=== PATIENT | female | born 1960 | race Caucasian/White ===

== ENCOUNTER 2020-02-01 15:36 | Outpatient (CLI) | payer OTHER, SELFPAY ==
--- NOTE | ~2020-02-01 | MM_ITS ---
EXAMINATION: MM screening nicolás BI w ligia HISTORY: Screening mammogram TECHNIQUE: Craniocaudal and mediolateral oblique 3-D tomosynthesis images were obtained and synthetic 2-D images were generated. CAD analysis was submitted and interpreted. COMPARISON: 05/09/2018, 11/07/2014 bilateral digital screening mammogram examinations BREAST PARENCHYMAL COMPOSITION: The breasts are almost entirely fatty. FINDINGS: Stable benign circumscribed low-density opacity in the posterior aspect of the lower outer quadrant of the left breast, most consistent with small benign intramammary lymph node. There is no e vidence of suspicious mass, calcification, or architectural distortion to suggest malignancy in eithe r breast. There has been no suspicious interval change. IMPRESSION: 1. No mammographic evidence of malignancy. 2. Recommend routine screening mammography in one year. BI-RADS Category 2: Benign finding(s). Reviewed, dictated and finalized at location A.
== END 2020-02-01 15:37 | disposition home or self-care (01) ==
PROVIDERS: PCP Family Medicine; Visit Provider Physician Assistant
DX: Z12.31 Encounter for screening mammogram for malignant neoplasm of breast (principal)
CPT/HCPCS: 77063; 77067

== ENCOUNTER 2020-02-06 00:33 | Day surgery (SDC) | payer OTHER, SELFPAY ==
[2020-02-04 09:15] VITALS: BMI 55.1
--- NOTE | 2020-02-05 17:36 | WPDANESEPP ---
Anes - Eval Pre Procedure Procedure: Colonoscopy Operation Date: 02/06/20 08:30 Proposed Procedures p Colonoscopy - Gregory Guerrero MD Date/Time: 02/05/20 17:36 Surgeon: Yolanda Pre Op Diagnosis: Abnormal Stool Patient Data Age: 59 Gender: F Height: 5 ft 6 in Weight: 155 kg Allergies Allergy/AdvReac Type Severity Reaction Status Date / Time morphine Allergy Mild Nausea Verified 02/04/20 09:04 Home Medications Medication Instructions Recorded Confirmed Type atenolol 100 mg PO DAILY 02/04/20 02/04/20 History lisinopril-hydrochlorothiazide 1 tablet PO DAILY 02/04/20 02/04/20 History tramadol 25 mg PO HS 02/04/20 02/04/20 History Patient hx anesthesia problems: other (hard to wake up) Family hx anesthesia problems: none PMFSH Past Medical History Medical History Anxiety Arthritis Hypertension Morbid obesity Surgical History Surgical History Previous section Family History Family History Other Diabetes mellitus Family history of cardiovascular disease Hypertension Social History Social History Smoking status: Never smoker Alcohol intake: current Exam Day of Procedure 02/05/20 17:36
[2020-02-06 07:17] VITALS: BP 133/84; PULSE 78; RESP 16; TEMP 36.8; O2SAT 97; BMI 56.7
--- NOTE | 2020-02-06 07:41 | WPDANESEFPP ---
Anes - Eval Final PreProcedure Day of Procedure 02/06/20 07:41 Patient weight: super morbidly obese Heart: regular rate and rhythm Lungs: clear to auscultation Airway: Mallampati scale class II Neurological: alert and oriented Last oral intake: >/= 8 hours ASA classification: III Emergent: no Anesthetic plan: proceed Anesthesia type and monitoring: general GIVS and standard monitoring Informed Consent: The patient's anesthetic plan and its attendant risks and benefits were discussed with the patient/family/POA. Questions were solicited and answers provided to the satisfaction of the patient/family/POA.
[2020-02-06] MEDS: LACTATED RINGERS 1,000 ML 150 ML IV CONT (07:53)
--- NOTE | 2020-02-06 08:32 | WPDGICN ---
Assessment and Plan Assessment and plan (1) Morbid obesity: Code(s): E66.01 - Morbid (severe) obesity due to excess calories Status: Acute (2) Positive colorectal cancer screening using Cologuard test: Code(s): R19.5 - Other fecal abnormalities Status: Acute Assessment and Plan: Plan is to proceed with screening colonoscopy. (3) Hypertension: Code(s): I10 - Essential (primary) hypertension Status: Acute GI Consult Note Consult date/time: 02/06/20 08:32 HPI: Cathryn Saldana is a 59 year old female Seen in evaluation at the request Dr. Salazar. And Dasia GROVE. Patient presents for colonoscopy. She recently had colon guard test positive. She states that her weight appetite bowel movements are normal. She denies abdominal pain.she denies blood in his stools. Family history noncontributory. She denies any blood in her stools. Past medical history is significant for obesity, and hypertension. Review of Systems Review of Systems: All systems reviewed & are unremarkable except as noted in HPI and below PMFSH Past Medical History Medical History Anxiety Arthritis Hypertension Morbid obesity Surgical History Surgical History Previous section Family History Family History Other Diabetes mellitus Family history of cardiovascular disease Hypertension Social History Social History Smoking status: Never smoker Alcohol intake: current Meds Home Medications and Allergies Home Medications Medication Instructions Recorded Confirmed Type atenolol 100 mg PO DAILY 02/04/20 02/06/20 History lisinopril-hydrochlorothiazide 1 tablet PO DAILY 02/04/20 02/04/20 History tramadol 25 mg PO HS 02/04/20 02/04/20 History Allergies Allergy/AdvReac Type Severity Reaction Status Date / Time morphine Allergy Mild Nausea Verified 02/06/20 07:16 Vital Signs Vital Signs - 24 hr 02/06/20 07:17 Temperature 36.8 C Pulse Rate 78 Respiratory Rate 16 Blood Pressure 133/84 Pulse Oximetry 97 Exam Narrative: Exam Narrative: Physical exam reveals her to be alert. Vital signs stable. HEENT exam unremarkable. Lungs are clear to auscultation and percussion. Heart is without murmur or extra sounds. Abdomen is obese. Bowel sounds are present soft nontender with no hepatosplenomegaly. Digital external rectal exam is normal.
[2020-02-06 09:12] VITALS: BP 92/46; PULSE 78; RESP 22; O2SAT 98
[2020-02-06 09:21] VITALS: BP 90/45; PULSE 76; RESP 21; O2SAT 98
[2020-02-06 09:29] VITALS: BP 90/48; PULSE 77; RESP 18; O2SAT 99
== END 2020-02-06 09:39 | disposition home or self-care (01) ==
PROVIDERS: PCP Family Medicine; Visit Provider Internal Medicine Gastroenterology
PROC: 0DJD8ZZ Inspection of Lower Intestinal Tract, Via Natural or Artificial Opening Endoscopic (ICD-10-PCS; CPT 45378; principal; 2020-02-06 08:30)
DX: Z12.11 Encounter for screening for malignant neoplasm of colon (principal); R19.5 Other fecal abnormalities; K62.1 Rectal polyp; I10 Essential (primary) hypertension; M19.90 Unspecified osteoarthritis, unspecified site; F41.9 Anxiety disorder, unspecified; E66.01 Morbid (severe) obesity due to excess calories; Z68.43 Body mass index [BMI] 50.0-59.9, adult
CPT/HCPCS: 45385; 88305; J2704; J7120

== ENCOUNTER 2022-10-18 09:35 | Outpatient (CLI) | payer BC, SELFPAY ==
--- NOTE | 2022-10-18 09:30 | ECG_ITS ---
Measurements Intervals [place] Rate: 92 P: 53 MS: 154 QRS: -55 QRSD: 90 T: 48 QT: 341 QTc: 424 Interpretive Statements SINUS RHYTHM LOW QRS VOLTAGE IN PRECORDIAL LEADS LEFT ANTERIOR FASCICULAR BLOCK BORDERLINE T WAVE ABNORMALITY- ANTERIOR LEADS BASELINE ARTIFACT- I, II, III, AVR, AVL, AVF, V1-V6 ABNORMAL ECG NO PREVIOUS ECG AVAILABLE FOR COMPARISON Electronically Signed On 10-18-2022 10:01:17 AUDIO VISUAL MANAGER by Osvaldo Jewell D.O.
[2022-10-18 10:30] LABS: Anion Gap 7 mmol/L (8-16); Blood Urea Nitrogen 29 mg/dL (7-17); Calcium 8.7 mg/dL (8.4-10.2); Carbon Dioxide 29 mmol/L (22-30); Chloride 98 mmol/L (98-107); Estimated Glomerular Filt Rate > 60; Glucose 276 mg/dL (65-110); Potassium 3.9 mmol/L (3.4-5.0); Sodium 134 mmol/L (137-145)
== END 2022-10-18 09:36 | disposition home or self-care (01) ==
PROVIDERS: Anesthesiology; PCP Family Medicine; Visit Provider Surgery
DX: I10 Essential (primary) hypertension (principal); Z79.899 Other long term (current) drug therapy; Z01.818 Encounter for other preprocedural examination; I44.4 Left anterior fascicular block
CPT/HCPCS: 36415; 80048; 93005

== ENCOUNTER 2022-10-25 00:57 | Day surgery (SDC) | payer BC, SELFPAY ==
[2022-10-12 13:49] VITALS: BMI 54.5
--- NOTE | 2022-10-12 14:27 | PC.NURSE ---
Addendum entered by Urmila Mock RN 10/12/22 14:34: CORRECTION: TAKE YOUR ATENOLOL THE MORNING OF SURGERY NOT METOPROLOL!!! Original Note: Report to the Outpatient Waiting Room, entrance under the green pavilion located off [facility], at time 11:30AM_ on date _10/25/22__. Planned Procedure Time: _1:30PM . Time changes happen often and if your time is changed the preop area will call you the afternoon before. - You and your visitor will be asked to self-screen and do not enter if you have any COVID symptoms. - Only one visitor is requested with a max of two and NO children visitors are allowed at this time. - The patient visitor may be requested to leave or wait in car when not with patient due to distancing restrictions.NOT CURRENTLY REQUIRED - A mask is required within the hospital. Patients may have clear liquids (water, carbonated beverages, clear teas, apple juice) until 3 hours prior to surgery with a maximum of 20 ounces. - No food from midnight until time of surgery - Take the following medications with a SIP of water the morning of surgery: _METOPROLOL Medications to discontinue per physician N/A Date to take last dose N/A Please no make-up, nail new zealander, hairspray, perfume, deodorant, or body powder the day of surgery. No jewelry (including any body piercings) or valuables the day of surgery, leave them at home. Please take a shower or bath the night before, or the morning of, surgery with the GENERIC CHLORHEXIDINE GLUCONATE SOAP OR BRAND name HIBICLENS SOAP. Wear comfortable, loose fitting clothing. - Jewelry must be removed prior to entering the operating room. Rings and piercings that are not removed may be cut off. - The hospital will not accept responsibility for valuables. - Please leave all valuables, including medications, at home the day of surgery. If you are going home after surgery, a licensed hazmat cdl a driver must drive you home. - NO public transportation without another adult if you receive anesthesia. - We recommend that an adult stay with you for 24 hours following discharge. - We also recommend that you do not drive, make important decision, drink alcoholic beverages, or take any drugs that were not prescribed by your health care provider for at least 24 hours after your discharge time. Follow any additional instructions given to you from your surgeon. If you or anyone in your household have experienced Covid symptoms in the past week, please notify your surgeon or the nurse liaison at the phone number below for possible testing. Telephone instructions given to _TEDI__and asked if any additional questions and then verbalized understanding. Patient advised to call surgeon office or pre surgery nurse liaison [phone] if any additional questions.
--- NOTE | 2022-10-22 13:42 | WPDANESEPPF ---
Anes - Initial Pre Proc Eval Procedure: Operation Date: 10/25/22 13:30 Proposed Procedures p Excision Left Axilla Hidradenitis - Carl Paulino DO Date/Time: 10/22/22 13:42 Surgeon: Carl Paulino DO Pre Op Diagnosis: hidradenitis suppurativa Patient Data Age: 62 Gender: F Height: 1.7 m Weight: 158 kg Allergies Allergy/AdvReac Type Severity Reaction Status Date / Time morphine Allergy Mild Nausea Verified 10/12/22 14:37 Home Medications Medication Instructions Recorded Confirmed Type atenolol 100 mg tablet 100 mg PO DAILY 02/04/20 10/12/22 History hydrochlorothiazide 12.5 mg capsule 12.5 mg PO DAILY 08/23/22 10/12/22 History lisinopril 5 mg tablet 5 mg PO DAILY 08/23/22 10/12/22 History mupirocin 2 % topical ointment 1 applic topical BID 08/23/22 10/12/22 History tramadol 50 mg tablet 50 mg PO DAILY PRN Pain 08/23/22 10/12/22 History metformin 500 mg tablet,extended 500 mg PO DAILY 10/12/22 10/12/22 History release 24 hr Patient hx anesthesia problems: none Family hx anesthesia problems: none Results Review: All pre-operative results and documents have been reviewed as part of the pre-operative evaluation. [facility] Past Medical History Medical History Anxiety Arthritis History of blood clots Hypertension Morbid obesity Surgical History Surgical History H/O cataract extraction H/O left knee surgery History of bilateral knee replacement History of tonsillectomy Previous section Family History Family History Father Diabetes mellitus Cerebrovascular accident Mother Heart disease Hypertension Other Family history of cardiovascular disease Social History Social History Smoking status: Never smoker Alcohol intake: never Substance use: never Substance use type: does not use Living arrangements: with family Spiritual care concerns: No Anes - Eval Final PreProcedure Day of Procedure 10/22/22 13:42 Patient weight: super morbidly obese Heart: regular rate and rhythm Lungs: clear to auscultation Airway: Mallampati scale class II Neurological: alert and oriented Last oral intake: >/= 8 hours ASA classification: III Emergent: no Anesthetic plan: proceed Anesthesia type and monitoring: general ETT and standard monitoring Results Review: All pre-operative results and documents have been reviewed as part of the pre-operative evaluation. Informed Consent: The patient's anesthetic plan and its attendant risks and benefits were discussed with the patient/family/POA. Questions were solicited and answers provided to the satisfaction of the patient/family/POA.
[2022-10-25] VITALS (11 sets, daily range): BP systolic 103–161; BP diastolic 55–94; PULSE 70–84; RESP 12–20; TEMP 35.6–37; O2SAT 95–100
[2022-10-25 12:36] LABS: Glucose Point of Care 181 mg/dl (65-105)
--- NOTE | 2022-10-25 12:55 | PM.IMHP ---
H&P: HPI History of Present Illness Date/Time: 10/25/22 12:55 Chief Complaint: Left axillary hidradenitis, new right axillary swelling and drainage Narrative: this is a 62-year-old woman who presents with recurrent infections in her left axillary region. She presents for excision of left axillary hidradenitis. She now notes an area in her right axilla that has had some swelling and drainage. She reports no other changes since last seen in the office. Review of Systems Review of Systems: All systems reviewed & are unremarkable except as noted in HPI and below Constitutional: Constitutional: Denies chills, Denies fever(s), Denies headache(s) and Denies weight loss Eyes: Eyes: Denies change in vision ENT: Denies dizziness, Denies headache(s), Denies neck mass and Denies throat swelling Cardiovascular: Cardiovascular: Denies chest pain, Denies lightheadedness and Denies dyspnea Respiratory: Respiratory: Denies cough, Denies dyspnea and Denies wheezing Gastrointestinal: Gastrointestinal: Denies abdominal pain, Denies change in bowel habits, Denies nausea and Denies vomiting Genitourinary: Genitourinary: Denies hematuria and Denies dysuria Musculoskeletal: Musculoskeletal: Reports as per HPI Integumentary/Breasts: Skin/Breast: Reports as per HPI Neurologic: Denies dizziness and Denies headache(s) Allergic/Immunologic: Allergic/Immunologic: Denies throat swelling and Denies wheezing PMF Past Medical History Medical History Anxiety Arthritis History of blood clots Hypertension Morbid obesity Surgical History Surgical History H/O cataract extraction H/O left knee surgery History of bilateral knee replacement History of tonsillectomy Previous section Family History Family History Father Diabetes mellitus Cerebrovascular accident Mother Heart disease Hypertension Other Family history of cardiovascular disease Social History Social History Smoking status: Never smoker Alcohol intake: never Substance use: never Substance use type: does not use Living arrangements: with family Spiritual care concerns: No Meds Home Medications and Allergies Home Medications Medication Instructions Recorded Confirmed Type atenolol 100 mg tablet 100 mg PO DAILY 02/04/20 10/12/22 History hydrochlorothiazide 12.5 mg capsule 12.5 mg PO DAILY 08/23/22 10/12/22 History lisinopril 5 mg tablet 5 mg PO DAILY 08/23/22 10/12/22 History mupirocin 2 % topical ointment 1 applic topical BID 08/23/22 10/12/22 History tramadol 50 mg tablet 50 mg PO DAILY PRN Pain 08/23/22 10/12/22 History metformin 500 mg tablet,extended 500 mg PO DAILY 10/12/22 10/12/22 History release 24 hr Allergies Allergy/AdvReac Type Severity Reaction Status Date / Time morphine Allergy Mild Nausea Verified 10/12/22 14:37 Exam Const: General: no acute distress and alert Orientation/consciousness: patient oriented x3 HENMT: Head: normocephalic and atraumatic Ears: hearing grossly normal bilaterally Face/Nose/Sinus: Normal nares present Mouth: Yes Normal oral and palatal mucosa present Eyes: Periorbital: periorbital findings normal Sclera: sclerae normal EOM: EOMs intact bilaterally Neck: Neck: normal visual inspection, no lymphadenopathy and trachea midline Chest: Chest palpation & inspection: normal inspection of the chest Resp: Effort & Inspection: normal respiratory effort Auscultation: clear to auscultation bilaterally Cardio: Jugular venous distension: no JVD Rate: regular rate Rhythm: regular rhythm Heart sounds: S1 normal heart sound present and S2 normal heart sound present Peripheral pulses: Peripheral pulses 2+ throughout GI: Inspection: normal to inspection GI P
--- NOTE | 2022-10-25 12:57 | WPDHPUPDATE1 ---
History and Physical Update Update Date/Time: 10/25/22 12:57 History and Physical has been reviewed, including an updated exam of the patient. There are NO changes in the patient's condition. Risks, benefits, and alternatives have been discussed and questions answered. Patient agrees to proceed with procedure.
[2022-10-25] MEDS: ceFAZolin 3 GM/D5W 100 ML 100 ML IVPB (13:05)
[2022-10-25] MEDS: LACTATED RINGERS 1,000 ML 30 ML IV CONT (13:27)
--- NOTE | 2022-10-25 13:47 | P.OP_ITS ---
Procedure Note - Detailed Date of Procedure 10/25/22 Pre-op Diagnosis Left axillary hidradenitis, right axillary abscess Post-op Diagnosis Same Procedure Performed 1. Excision of left axillary hidradenitis with simple closure 2. Incision and drainage of right axillary abscess Surgeon Carl Paulino, Anesthesia General and Local (0.5% bupivacaine with epinephrine) Indications This is a 62-year-old woman who presented with recurrent infections in her left axilla over the past 6 months. She has been placed on multiple rounds of oral antibiotics but continues to have intermittent swelling and drainage in left axilla. She was found to have evidence of left axillary hidradenitis with recurrent infections. Discussions were made with the patient about treatment options and decision was made to proceed with excision of left axillary hidradenitis. On the day of the surgery, patient brought it to my attention that she was also now experiencing some swelling, redness, and drainage in the right axilla. She was found to have evidence of a right axillary abscess. Decision was made to proceed with incision and drainage of right axillary abscess as well. Findings Excision of left axillary hidradenitis was performed. 6 cm x 3 cm elliptical incision was made around the area of hidradenitis in the left axilla and the skin and subcutaneous tissue was completely excised and sent to the lab for pathology. The skin edges were reapproximated using 3-0 nylon vertical mattress interrupted sutures. A 2 cm shallow incision was then made the right axilla and scant purulence drainage was evacuated. The wound was then packed with quarter- inch iodoform gauze. Description of Procedure Procedure as well as risks, benefits, and alternatives were discussed with the patient. Written consent was obtained and placed in chart prior to procedure. Patient was brought back to surgical suite. She was placed supine operating table. Time-out was done to confirm patient and procedure. She was then in tubated by the anesthesia department. Her bilateral axilla were prepped and draped in sterile fashion using Betadine prep. 0.5% bupivacaine with epinephrine was infiltrated locally around the left axillary hidradenitis initially. A 15 blade scalpel then used to making elliptical incision around the involved skin. Electrocautery was then used for hemostasis and for dissection through the subcutaneous tissue to completely excise the hidradenitis. The wound was inspected and hemostasis was achieved with electrocautery. Skin edges were then reapproximated using 3-0 nylon vertical mattress interrupted sutures. I then moved my attention over to the right axilla. 0.5% bupivacaine with epinephrine was infiltrated locally around the abscess. A 2 cm incision was made directly over the abscess using a 15 blade scalpel. Scant purulence and bloody drainage was evacuated. Electrocautery was used for hemostasis. The wound was then packed with quarter-inch iodoform gauze. 4 x 4 gauze and tape were then applied. The patient was then awakened from anesthesia, extubated, and transferred to recovery. Estimated Blood Loss 5 Pathology Yes (Left axillary hidradenitis) Complications No immediate complications Condition Stable Disposition Same day [facility] Billing Surgery - Charge Forward: Surgery Billing
[2022-10-25] MEDS: BUPIVACAINE/EPINEPHRINE 0.5% 30 ML VIAL INFILTRATE (13:49)
[2022-10-25 13:59] LABS: Glucose Point of Care 160 mg/dl (65-105)
[2022-10-25] MEDS: fentaNYL CITRATE INJ (*CRX) 100 MCG/2 ML VIAL 25 MCG IV PUSH ×2 (14:30→14:35)
[2022-10-25] MEDS: ONDANSETRON INJ 4 MG/2 ML VIAL IV PUSH (15:43)
== END 2022-10-25 16:20 | disposition home or self-care (01) ==
PROVIDERS: PCP Family Medicine; Visit Provider Surgery
PROC: (CPT 10060; principal; 2022-10-25 13:30)
DX: L73.2 Hidradenitis suppurativa (principal); L02.411 Cutaneous abscess of right axilla; I10 Essential (primary) hypertension; Z79.84 Long term (current) use of oral hypoglycemic drugs; E66.01 Morbid (severe) obesity due to excess calories; Z68.43 Body mass index [BMI] 50.0-59.9, adult
CPT/HCPCS: 10060; 11450; 82948; 88304; J0690; J2250; J2405; J2704; J3010; J7120

== ENCOUNTER 2023-01-27 08:38 | Outpatient (RCR) | payer BC, SELFPAY ==
[2023-01-19 13:49] VITALS: BMI 59.3
== END 2023-04-04 14:05 | disposition home or self-care (01) ==
LOC: ANHWOC 08:38
PROVIDERS: PCP Family Medicine; Visit Provider Surgery
DX: L73.2 Hidradenitis suppurativa (principal)
CPT/HCPCS: 99212; 99213; A9270; G0463